=== PATIENT | male | born 1945 | race Caucasian/White ===

== ENCOUNTER 2024-03-13 13:05 | Outpatient (CLI) | payer MEDICARE, OTHER ==
[2024-03-13] MEDS ORDERED: Iopamidol 370 76% 100 ML VIAL ONE (13:17)
== END 2024-03-13 13:06 | disposition home or self-care (01) ==
LOC: CT 13:05
PROVIDERS: ATTEND Internal Medicine Cardiovascular Disease
DX: R94.39 Abnormal result of other cardiovascular function study (principal); I65.29 Occlusion and stenosis of unspecified carotid artery
CPT/HCPCS: 36415; 70498; 82565; Q9967